=== PATIENT | female | born 1975 | race Asian ===

== ENCOUNTER 2016-10-11 13:22 | Day surgery (SDC) | payer OTHER ==
[~2016-10-11] VITALS: Ht 162.6 cm; Wt 54.4 kg
[2016-10-11] VITALS (8 sets, daily range): BP systolic 99–110; BP diastolic 58–73
--- NOTE | 2016-10-11 13:54 | NUR ---
Patient ambulated to bed 03.
--- NOTE | 2016-10-11 13:56 | NUR ---
41 YO FEMALE BIB SELF FOR MISSED AB SENT BY MD.PT DENIES N/V/D; SKIN IS PINK/WARM/DRY; AAOX4 WITH EVEN AND STEADY GAIT; LUNGS CLEAR BL; HR EVEN AND REGULAR; PT DENIES ANY FEVER, CP, SOB, OR COUGH AT THIS TIME; PATIENT STATES PAIN OF 2/10 AT THIS TIME; VSS; PATIENT POSITIONED FOR COMFORT; HOB ELEVATED; BEDRAILS UP X2; BED DOWN. ER MD MADE AWARE OF PT STATUS.
--- NOTE | 2016-10-11 14:27 | NUR ---
US AT BEDSIDE
--- NOTE | 2016-10-11 15:58 | NUR ---
PROVIDED WARM BLANKET TO PT FOR COMFORT; VSS AT THIS TIME; FAMILY AT BEDSIDE.
--- NOTE | 2016-10-11 16:34 | NUR ---
Dr. Nugent evaluating patient at bedside.
--- NOTE | 2016-10-11 16:44 | NUR ---
[facility]; EL AGUIRRE STATES DISCHARGING PT AND WILL CALL BACK IN 10 MINUTES.
--- NOTE | 2016-10-11 16:44 | NUR ---
Anika rice in [facility] - 10/11/16 at 1645 by [facility] CALLED [facility] TO GIVE REPORT; EL AGUIRRE STATES DISCHARGING PT AND WILL CALL BACK IN 10 MINUTES.
--- NOTE | 2016-10-11 16:51 | NUR ---
REPORT GIVEN TO EL AGUIRRE. PT WILL GO TO OR FOR D&C FROM ER.
--- NOTE | 2016-10-11 17:13 | NUR ---
APatient will be admitted to care of DR. CONTRERAS. Admited to [facility]. Will go to room 105A . Belongings list completed. Report to EL AGUIRRE. PT TAKEN TO OR ACCOMPANIED BY EL AGUIRRE VIA [facility] AT THIS TIME.
[2016-10-11] MEDS ORDERED: SEVOFLURANE 250 ML BTL INH ONE (17:14)
[2016-10-11] MEDS ORDERED: LIDOCAINE 2% 100 MG/5 ML SYR IVP ONE (17:14)
[2016-10-11] MEDS ORDERED: PROPOFOL 200 MG/20 ML VIAL IV ONE (17:14)
[2016-10-11] MEDS ORDERED: MIDAZOLAM 2 MG/2 ML VIAL ONE (17:26)
[2016-10-11] MEDS ORDERED: MORPHINE SULFATE 4 MG/ML SYR IM/IVP PRN (17:30)
[2016-10-11] MEDS ORDERED: ONDANSETRON 4 MG/2 ML VIAL IVP PRN ×2 (17:30→17:40)
[2016-10-11] MEDS ORDERED: ACETAMINOPHEN/CODEINE 300/30MG 1 TAB PO PRN (17:30)
[2016-10-11] MEDS ORDERED: IBUPROFEN 800 MG TAB PO PRN (17:30)
[2016-10-11] MEDS ORDERED: HYDROmorphone 1 MG/ML AMP IVP PRN (17:40)
--- NOTE | 2016-10-11 18:34 | NUR ---
RECEIVED PT FROM SENIOR PAYROLL MANAGER. PT A/O X 4, AMBULATORY, RAC 20G IV INTACT AND PATENT. NO S/S OF ACUTE CARDIAC/RESPIRATORY DISTRESS/DISCOMFORT. NO TO MINIMAL VAGINAL BLEEDING/SPOTTING. SAFETY MEASURES IN PLACE. CALL LIGHT WITHIN REACH. AT BEDSIDE. WILL CONTINUE PLAN OF CARE AND CONTINUE TO MONITOR.
--- NOTE | 2016-10-11 19:15 | NUR ---
ENDORSED REPORT TO EMBROIDERY WORKER RN. PT IS A/O X 4. NO S/S OF ACUTE DISTRESS OR DISTRESS. PT IN STABLE CONDITION. CALL LIGHT WITHIN REACH.
--- NOTE | 2016-10-11 19:16 | NUR ---
RECEIVED PT IN STABLE CONDITION FROM EL SANZ. NO SOB, NO SINS OF DISTRESS. PT IS S/P D&C WITH MD TERRELL NEUMANN TODAY. VS STABLE ON ROOM AIR. PT IS AOX4, SPEAKING SOME SWEDISH, AT BEDSIDE. IV TO RT AC 20G PATENT, ASYMPTOMATIC, INTACT, IVF RUNNING. SKIN INTACT. MINIMAL BLOOD NOTED TO ARLIN PAD. PT STATES NO PAIN AT THIS TIME. PT HAS NOT VOIDED OR WALKED YET, EDUCATED PT THAT SHE NEEDS TO VOID AND AMBULATE BEFORE DC, PT VERBALIZED UNDERSTANDING AND STATED SHE WILL TRY AT 1999. PLAN OF CARE DISCUSSED WITH PT AND . SAFETY MEASURES IN PLACE. CALL LIGHT WITHIN REACH. WILL CONTINUE TO MONITOR.
--- NOTE | 2016-10-11 20:00 | NUR ---
AMBULATED PT TO RESTROOM, PT TOLERATED WELL AND VOIDED. MINIMAL BLEEDING NOTED. VS STABLE ON ROOM AIR. EDUCATED PT AND ABOUT AMOUNT OF BLEEDING THAT IS EXPECTED VS AMOUNT OF BLEEDING THAT IS ABNORMAL IN WHICH CASE SHE WILL NEED TO RETURN TO ER. PT AND VERBALIZED UNDERSTANDING. PT STATED HE PAIN IS TOLERABLE AT THIS TIME. PT STATED SHE WOULD LIKE TO WAIT SOME MORE TIME BEFORE GOING HOME. PLAN OF CARE DISCUSSED WITH PT AND . SAFETY MEASURES IN PLACE. CALL LIGHT WITHIN REACH. WILL CONTINUE TO MONITOR.
--- NOTE | 2016-10-11 21:47 | NUR ---
PT DISCHARGE TEACHING AND INSTRUCTIONS REVIEWED WITH PT AND PTS , PT VERBALIZED UNDERSTANDING.
--- NOTE | 2016-10-11 22:00 | NUR ---
PT DISCHARGED WITH VS STABLE. ALL QUESTIONS ANSWERED. PT ADVISED TO FOLLOW UP WITH MD TERRELL NEUMANN IN 1 WEEK.
== END 2016-10-11 22:00 | disposition home or self-care (01) ==
LOC: MED 13:22 → MTU 16:47 → MED 22:00
PROVIDERS: ATTEND Obstetrics & Gynecology
DX: O02.1 Missed abortion (principal); Z3A.11 11 weeks gestation of pregnancy; I12.9 Hypertensive chronic kidney disease with stage 1 through stage 4 chronic kidney disease, or unspecified chronic kidney disease; E11.22 Type 2 diabetes mellitus with diabetic chronic kidney disease; N18.9 Chronic kidney disease, unspecified; J45.909 Unspecified asthma, uncomplicated; K21.9 Gastro-esophageal reflux disease without esophagitis; G40.909 Epilepsy, unspecified, not intractable, without status epilepticus; F03.90 Unspecified dementia, unspecified severity, without behavioral disturbance, psychotic disturbance, mood disturbance, and anxiety; M43.9 Deforming dorsopathy, unspecified
CPT/HCPCS: 36415; 59820; 76801; 81001; 84702; 85025; 86886; 86900; 86901; J2001; J2250; J2704; J7120; Q0092